=== PATIENT | male | born 1955 | race Caucasian/White ===

== ENCOUNTER 2016-12-07 13:18 | Inpatient (IN) | payer OTHER ==
[2016-12-07 17:31] VITALS: BMI 24.5
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
[2016-12-07] MEDS ORDERED: P-EPHED 60MG/TRIPROLIDI 2.5MG TABLET PO PRN (18:45)
[2016-12-07] MEDS ORDERED: NICOTINE POLACRILEX 2 MG GUM BC PRN (18:45)
[2016-12-07] MEDS ORDERED: LOPERAMIDE HCL 2 MG CAPSULE PO PRN (18:45)
[2016-12-07] MEDS ORDERED: MAGNESIUM HYDROX 2400MG/30ML ORAL SUSPENSION 30 ML CUP PO PRN (18:45)
[2016-12-07] MEDS ORDERED: diphenhydrAMINE HCL 50 MG CAPSULE PO PRN (18:45)
[2016-12-07] MEDS ORDERED: guaiFENesin/D-METHORPHAN HB 10 ML UNIT-DOSE CUPS PO PRN (18:45)
[2016-12-07] MEDS ORDERED: IBUPROFEN 400 MG TABLET (FP) PO PRN (18:45)
[2016-12-07] MEDS ORDERED: MENTHOL/PHENOL 1 EACH UD MM PRN (18:45)
[2016-12-07] MEDS ORDERED: ACETAMINOPHEN 325 MG TABLET (FP) PO PRN (18:45)
[2016-12-07] MEDS ORDERED: MAGNESIUM CITRATE 300 ML BOTTLE PO PRN (18:45)
[2016-12-07] MEDS ORDERED: MAG HYDROX/AL HYDROX/SIMETH 30 ML UNIT-DOSE CUP PO PRN (18:45)
[2016-12-07] MEDS ORDERED: NICOTINE 14 MG/24 HOURS TOPICAL PATCH TD PRN (19:30)
[2016-12-07] MEDS ORDERED: diazePAM 5 MG TABLET PO ONE (19:30)
[2016-12-07] MEDS: THIAMINE HCL 100 MG TABLET (FP) PO SCH (22:03)
[2016-12-07] MEDS: diazePAM 5 MG TABLET PO SCH (22:03)
[2016-12-07 23:24] LABS: URINE APPEARANCE CLEAR; URINE BILIRUBIN NEGATIVE (NEGATIVE); URINE BLOOD NEGATIVE (NEGATIVE); URINE COLOR COLORLESS; URINE GLUCOSE (UA) NEGATIVE (NEGATIVE); URINE KETONE NEGATIVE (NEGATIVE); URINE LEUK ESTERASE NEGATIVE (NEGATIVE); URINE NITRITE NEGATIVE (NEGATIVE); URINE PROTEIN NEGATIVE (NEGATIVE); URINE UROBILINOGEN NEGATIVE E.U./dl (0.2-1.0)
[2016-12-08] MEDS: diazePAM 5 MG TABLET PO SCH ×3 (06:02→22:04)
[2016-12-08] MEDS ORDERED: METHADONE HCL 10 MG TABLET PO SCH (08:45)
[2016-12-08] MEDS ORDERED: METHADONE HCL 10 MG TABLET PO ONE (09:06)
[2016-12-08 10:07] LABS: MCH 32.9 pg (25.7-33.7); MCHC 33.6 g/dl (32.0-35.9); MEAN PLT VOLUME 9.8 fl (7.5-11.1); PLATELET COUNT 63 K/MM3 (134-434); RDW 14.6 % (11.9-15.9); WHITE BLOOD COUNT 3.3 K/mm3 (4.0-10.0)
[2016-12-08] MEDS: PRENATAL VITAMINS W/ FOLIC ACID TABLET (FP) PO SCH (10:15)
--- NOTE | 2016-12-08 11:00 | PN ---
[facility] CIWA - CIWA Score Nausea/Vomitin-No Nausea/No Vomiting Muscle Tremors: 4-Moderate,w/Arms Extend Anxiety: 4-Mod. Anxious/Guarded Agitation: 4-Moderately Restless Paroxysmal Sweats: 1-Minimal Palms Moist Orientation: 0-Oriented Tacttile Disturbances: 3-Moderate Itch/Numb/Burn Auditory Disturbances: 0-None Visual Disturbances: 0-None Headache: 0-None Present CIWA-Ar Total Score: 16 S Progress Note (SOAP) Subjective: TREMORS, ANXIETY,INTERMITTENT SLEEP Objective: 12/08/16 11:00 Vital Signs Temperature 97.4 F L 12/08/16 09:39 Pulse Rate 68 12/08/16 09:39 Respiratory Rate 18 12/08/16 09:39 Blood Pressure 105/66 12/08/16 09:39 O2 Sat by Pulse Oximetry (%) Laboratory Last Values WBC 3.3 K/mm3 (4.0-10.0) L 12/08/16 06:00 RBC 3.22 M/mm3 (4.00-5.60) L 12/08/16 06:00 Hgb 10.6 GM/dL (11.7-16.9) L 12/08/16 06:00 Hct 31.6 % (35.4-49) L 12/08/16 06:00 MCV 98.0 fl (80-96) H 12/08/16 06:00 MCHC 33.6 g/dl (32.0-35.9) 12/08/16 06:00 RDW 14.6 % (11.9-15.9) 12/08/16 06:00 Plt Count 63 K/MM3 (134-434) L 12/08/16 06:00 MPV 9.8 fl (7.5-11.1) 12/08/16 06:00 Sodium 142 mmol/L (136-145) 12/08/16 06:00 Potassium 4.0 mmol/L (3.5-5.1) 12/08/16 06:00 Chloride 105 mmol/L (98-107) 12/08/16 06:00 Urine Color Colorless 12/07/16 Unknown Urine Appearance Clear 12/07/16 Unknown Urine pH 6.0 (5.0-8.0) 12/07/16 Unknown Urine Protein Negative (NEGATIVE) 12/07/16 Unknown Urine Glucose (UA) Negative (NEGATIVE) 12/07/16 Unknown Urine Ketones Negative (NEGATIVE) 12/07/16 Unknown Urine Blood Negative (NEGATIVE) 12/07/16 Unknown Urine Nitrite Negative (NEGATIVE) 12/07/16 Unknown Urine Bilirubin Negative (NEGATIVE) 12/07/16 Unknown Urine Urobilinogen Negative E.U./dl (0.2-1.0) 12/07/16 Unknown Ur Leukocyte Esterase Negative (NEGATIVE) 12/07/16 Unknown Assessment: 12/08/16 11:00 WITHDRAWAL SX Plan: CONTINUE DETOX
[2016-12-08 11:24] LABS: ALBUMIN 3.4 g/dl (3.4-5.0); ALK PHOS 141 U/L (45-117); ANION GAP 10 (8-16); BILIRUBIN,TOTAL 0.8 mg/dL (0.2-1.0); CALCIUM 8.7 mg/dL (8.5-10.1); CO2 27 mmol/L (21-32); COCKROFT - GAULT 94.56; CREATININE 0.8 mg/dL (0.7-1.3); GLUCOSE,RANDOM 90 mg/dL (74-106); HIV 1 & 2 AB NEGATIVE; HIV 1 AGp24 NEGATIVE; SGOT/AST 86 U/L (15-37); SGPT/ALT 43 U/L (12-78); TOT PROT 7.5 g/dl (6.4-8.2)
--- NOTE | 2016-12-08 11:59 | EKG ---
Test Reason : Blood Pressure : / mmHG Vent. Rate : 057 BPM Atrial Rate : 057 BPM P-R Int : 176 ms QRS Dur : 096 ms QT Int : 450 ms P-R-T Axes : 059 048 053 degrees QTc Int : 438 ms SINUS BRADYCARDIA OTHERWISE NORMAL ECG NO PREVIOUS ECGS AVAILABLE Confirmed by TARUN SANFORD, CHELLE ([id number]) on 12/08/2016 11:59:27 AM Referred By: Confirmed By:CHELLE MCNEIL MD
--- NOTE | 2016-12-08 16:42 | CONSULT ---
[facility] Psychiatric Consult - Data Date of interview: 12/08/16 Admission source: [facility] Identifying data: First admission to [facility] for this 61 y/o male seeking detox treatment for alcohol and benzodiazepine dependence.Patient is single,a father of one,domiciled,unemployed and supported on SSI benefits. Substance Abuse History: - Smoking Cessation. Smoking history: Current every day smoker. Have you smoked in the past 12 months: Yes. Aproximately how many cigarettes per day: 10. Cigars Per Day: 0. Hx Chewing Tobacco Use: No. Initiated information on smoking cessation: Yes. 'Breaking Loose' booklet given : 12/07/16. - Substance & Tx. History. Hx Alcohol Use: Yes. Hx Substance Use : Yes. Substance Use Type: Alcohol, Tranquilizers. Hx Substance Use Treatment : Yes. - Substances Abused. Alcohol. Route: Oral. Frequency: Daily. Amount used: BEER- 1 SIX PACK. Age of first use: 12. Date of Last Use: . Heroin. Route: Inhalation. Frequency: Daily. Amount used: 2 BAGS. Age of first use: 12. Date of Last Use: 12/06/16. Diazepam. Route: Oral. Frequency: Daily. Amount used: 20 MG. Age of first use: 15. Date of Last Use : 12/06/16. Confirmed by patient. Medical History: Hepatitis C,lower back pain and a remote history of head trauma. Psychiatric History: Patient is a poor historian.He denies hiastory of psychiatric hospitalizations.Mr Arzola reports OPD care at the [facility].Vague and difficult to follow.Patient does mention zoloft without clear details.Diagnosed with MDD and Anxiety Disorder.History of suicide attempt via " cutting " at age 19.Patient reports chronic insomnia. Physical/Sexual Abuse/Trauma History: Patient denies. Additional Comment: Urine Drug Screen Results: OPI-Opiates, BZO-Benzodiazepines , MTD-Methadone.Noted. Mental Status Exam - Mental Status Exam Alert and Oriented to: Time, Place, Person Cognitive Function: Grossly Intact Patient Appearance: Unkempt, Disheveled Mood: Nervous, Withdrawn, Anxious Affect: Mood Congruent Patient Behavior: Sedated (light sedation.), Fatigued Speech Pattern: Delayed, Slurred, Rambling (at times) Voice Loudness: Moderately Soft/Quiet Thought Process: Disorganized Thought Disorder: Not Present Hallucinations: Denies Suicidal Ideation: Denies Homicidal Ideation: Denies Insight/Judgement: Poor Sleep: Poorly, Difficulty falling asleep Appetite: Fair Muscle strength/Tone: Normal Gait/Station: Normal Psychiatric Findings - Problem List ([place] 1, 2,3) (1) Alcohol dependence with uncomplicated withdrawal Current Visit: Yes Status: Acute (2) Opioid dependence on agonist therapy Current Visit: Yes Status: Acute (3) Benzodiazepine dependence Current Visit: Yes Status: Acute (4) Nicotine dependence Current Visit: Yes Status: Acute Qualifiers: Nicotine product type: cigarettes Substance use status: in withdrawal Qualified Code(s): F17.213 - Nicotine dependence, cigarettes, with withdrawal (5) Depressive disorder Current Visit: Yes Status: Acute (6) Substance induced mood disorder Current Visit: Yes Status: Acute (7) Weight loss Current Visit: Yes Status: Chronic (8) Hepatitis C antibody positive in blood Current Visit: Yes Status: Chronic (9) Metal plate in skull Current Visit: Yes Status: Resolved (10) Positive PPD, treated Current Visit: Yes Status: Resolved (11) Insomnia Current Visit: Yes Status: Acute - Initial Treatment Plan Initial Treatment Plan: Psychoeducation.Detoxification.Medications : zoloft 50 mg po daily.Side effects/benefits discussed with patient.He agrees with paln.Observation.Pharmacy claims are reviewed : noted scripts for valium 10 mg # 60 tablets + zoloft 50 mg # 30 tablets issued on 12/04/16 at [facility].NO scripts needed at discharge.
[2016-12-08] MEDS: THIAMINE HCL 100 MG TABLET (FP) PO SCH (22:04)
[2016-12-09] MEDS: METHADONE HCL 10 MG TABLET PO SCH (06:17)
--- NOTE | 2016-12-09 09:45 | PN ---
[facility] CIWA - CIWA Score Nausea/Vomitin-No Nausea/No Vomiting Muscle Tremors: 4-Moderate,w/Arms Extend Anxiety: 4-Mod. Anxious/Guarded Agitation: 4-Moderately Restless Paroxysmal Sweats: 1-Minimal Palms Moist Orientation: 0-Oriented Tacttile Disturbances: 3-Moderate Itch/Numb/Burn Auditory Disturbances: 0-None Visual Disturbances: 0-None Headache: 0-None Present CIWA-Ar Total Score: 16 S Progress Note (SOAP) Subjective: ANXIETY,SWEATS,FATIGUE. Objective: 12/09/16 09:45 Vital Signs Temperature 96.0 F L 12/09/16 06:40 Pulse Rate 60 12/09/16 06:40 Respiratory Rate 18 12/09/16 06:40 Blood Pressure 119/72 12/09/16 06:40 O2 Sat by Pulse Oximetry (%) Laboratory Last Values WBC 3.3 K/mm3 (4.0-10.0) L 12/08/16 06:00 RBC 3.22 M/mm3 (4.00-5.60) L 12/08/16 06:00 Hgb 10.6 GM/dL (11.7-16.9) L 12/08/16 06:00 Hct 31.6 % (35.4-49) L 12/08/16 06:00 MCV 98.0 fl (80-96) H 12/08/16 06:00 MCHC 33.6 g/dl (32.0-35.9) 12/08/16 06:00 RDW 14.6 % (11.9-15.9) 12/08/16 06:00 Plt Count 63 K/MM3 (134-434) L 12/08/16 06:00 MPV 9.8 fl (7.5-11.1) 12/08/16 06:00 Sodium 142 mmol/L (136-145) 12/08/16 06:00 Potassium 4.0 mmol/L (3.5-5.1) 12/08/16 06:00 Chloride 105 mmol/L (98-107) 12/08/16 06:00 Carbon Dioxide 27 mmol/L (21-32) 12/08/16 06:00 Anion Gap 10 (8-16) 12/08/16 06:00 BUN 8 mg/dL (7-18) 12/08/16 06:00 Creatinine 0.8 mg/dL (0.7-1.3) 12/08/16 06:00 Creat Clearance w eGFR > 60 (>60) 12/08/16 06:00 Random Glucose 90 mg/dL (74-106) 12/08/16 06:00 Calcium 8.7 mg/dL (8.5-10.1) 12/08/16 06:00 Total Bilirubin 0.8 mg/dL (0.2-1.0) 12/08/16 06:00 AST 86 U/L (15-37) H 12/08/16 06:00 ALT 43 U/L (12-78) 12/08/16 06:00 Alkaline Phosphatase 141 U/L (45-117) H 12/08/16 06:00 Total Protein 7.5 g/dl (6.4-8.2) 12/08/16 06:00 Albumin 3.4 g/dl (3.4-5.0) 12/08/16 06:00 Urine Color Colorless 12/07/16 Unknown Urine Appearance Clear 12/07/16 Unknown Urine pH 6.0 (5.0-8.0) 12/07/16 Unknown Ur Specific [place] <= 1.005 (1.005-1.025) 12/07/16 Unknown Urine Protein Negative (NEGATIVE) 12/07/16 Unknown Urine Glucose (UA) Negative (NEGATIVE) 12/07/16 Unknown Urine Ketones Negative (NEGATIVE) 12/07/16 Unknown Urine Blood Negative (NEGATIVE) 12/07/16 Unknown Urine Nitrite Negative (NEGATIVE) 12/07/16 Unknown Urine Bilirubin Negative (NEGATIVE) 12/07/16 Unknown Urine Urobilinogen Negative E.U./dl (0.2-1.0) 12/07/16 Unknown Ur Leukocyte Esterase Negative (NEGATIVE) 12/07/16 Unknown RPR Titer Nonreactive (NONREACTIVE) 12/08/16 06:00 HIV 1&2 Antibody Screen Negative 12/08/16 06:00 HIV P24 Antigen Negative 12/08/16 06:00 Assessment: 12/09/16 09:46 WITHDRAWAL SX Plan: CONTINUE DETOX
[2016-12-09] MEDS: PRENATAL VITAMINS W/ FOLIC ACID TABLET (FP) PO SCH (10:12)
[2016-12-09] MEDS: SERTRALINE HCL 50 MG TABLET (FP) PO SCH (10:12)
[2016-12-09] MEDS: diazePAM 5 MG TABLET PO SCH ×2 (10:12→22:03)
[2016-12-09] MEDS: THIAMINE HCL 100 MG TABLET (FP) PO SCH (22:02)
[2016-12-10] MEDS: METHADONE HCL 10 MG TABLET PO SCH (05:43)
[2016-12-10] MEDS: diazePAM 5 MG TABLET PO PRN ×2 (05:43→17:05)
[2016-12-10] MEDS: diazePAM 5 MG TABLET PO SCH ×2 (10:05→22:10)
[2016-12-10] MEDS: SERTRALINE HCL 50 MG TABLET (FP) PO SCH ×2 (10:05→10:07)
[2016-12-10] MEDS: PRENATAL VITAMINS W/ FOLIC ACID TABLET (FP) PO SCH (10:05)
--- NOTE | 2016-12-10 10:32 | PN ---
[facility] Progress Note (SOAP) Subjective: PT IS VERY ANXIOUS WITH SOME TREMORS, IRRITABILITY,RESTLESSNESS AND APPREHENSION. Objective: 12/10/16 10:32 Vital Signs Temperature 96.4 F L 12/10/16 10:17 Pulse Rate 65 12/10/16 10:17 Respiratory Rate 18 12/10/16 10:17 Blood Pressure 91/59 12/10/16 10:17 O2 Sat by Pulse Oximetry (%) Assessment: 12/10/16 10:32 WITHDRAWAL SX Plan: CONTINUE DETOX REMINDED PT TO FOCUS ON TREATMENT GOALS.
[2016-12-10] MEDS: THIAMINE HCL 100 MG TABLET (FP) PO SCH (22:10)
[2016-12-11] MEDS: METHADONE HCL 10 MG TABLET PO SCH (05:50)
[2016-12-11] MEDS: PRENATAL VITAMINS W/ FOLIC ACID TABLET (FP) PO SCH (09:35)
[2016-12-11] MEDS: SERTRALINE HCL 50 MG TABLET (FP) PO SCH (09:36)
[2016-12-11] MEDS ORDERED: diazePAM 5 MG TABLET PO SCH (10:00)
[2016-12-11 10:28] VITALS: BP 115/74; PULSE 70; TEMP 97.7
--- NOTE | 2016-12-11 10:41 | DS ---
[facility] Detox Discharge Summary Admission Date: 12/07/16 Discharge Date: 12/11/16 - History Present History: Alcohol Dependence, MMTP Pertinent Past History: PPD+ Hep C Cirrhosis of the liver - Physical Exam Results Vital Signs: Vital Signs Temperature 97.7 F 12/11/16 10:27 Pulse Rate 70 12/11/16 10:27 Respiratory Rate 18 12/11/16 10:27 Blood Pressure 115/74 12/11/16 10:27 O2 Sat by Pulse Oximetry (%) Pertinent Admission Physical Exam Findings: Withdrawal sx. Laboratory Last Values WBC 3.3 K/mm3 (4.0-10.0) L 12/08/16 06:00 RBC 3.22 M/mm3 (4.00-5.60) L 12/08/16 06:00 Hgb 10.6 GM/dL (11.7-16.9) L 12/08/16 06:00 Hct 31.6 % (35.4-49) L 12/08/16 06:00 MCV 98.0 fl (80-96) H 12/08/16 06:00 MCHC 33.6 g/dl (32.0-35.9) 12/08/16 06:00 RDW 14.6 % (11.9-15.9) 12/08/16 06:00 Plt Count 63 K/MM3 (134-434) L 12/08/16 06:00 MPV 9.8 fl (7.5-11.1) 12/08/16 06:00 Sodium 142 mmol/L (136-145) 12/08/16 06:00 Potassium 4.0 mmol/L (3.5-5.1) 12/08/16 06:00 Chloride 105 mmol/L (98-107) 12/08/16 06:00 Carbon Dioxide 27 mmol/L (21-32) 12/08/16 06:00 Anion Gap 10 (8-16) 12/08/16 06:00 BUN 8 mg/dL (7-18) 12/08/16 06:00 Creatinine 0.8 mg/dL (0.7-1.3) 12/08/16 06:00 Creat Clearance w eGFR > 60 (>60) 12/08/16 06:00 Random Glucose 90 mg/dL (74-106) 12/08/16 06:00 Calcium 8.7 mg/dL (8.5-10.1) 12/08/16 06:00 Total Bilirubin 0.8 mg/dL (0.2-1.0) 12/08/16 06:00 AST 86 U/L (15-37) H 12/08/16 06:00 ALT 43 U/L (12-78) 12/08/16 06:00 Alkaline Phosphatase 141 U/L (45-117) H 12/08/16 06:00 Total Protein 7.5 g/dl (6.4-8.2) 12/08/16 06:00 Albumin 3.4 g/dl (3.4-5.0) 12/08/16 06:00 Urine Color Colorless 12/07/16 Unknown Urine Appearance Clear 12/07/16 Unknown Urine pH 6.0 (5.0-8.0) 12/07/16 Unknown Ur Specific [place] <= 1.005 (1.005-1.025) 12/07/16 Unknown Urine Protein Negative (NEGATIVE) 12/07/16 Unknown Urine Glucose (UA) Negative (NEGATIVE) 12/07/16 Unknown Urine Ketones Negative (NEGATIVE) 12/07/16 Unknown Urine Blood Negative (NEGATIVE) 12/07/16 Unknown Urine Nitrite Negative (NEGATIVE) 12/07/16 Unknown Urine Bilirubin Negative (NEGATIVE) 12/07/16 Unknown Urine Urobilinogen Negative E.U./dl (0.2-1.0) 12/07/16 Unknown Ur Leukocyte Esterase Negative (NEGATIVE) 12/07/16 Unknown RPR Titer Nonreactive (NONREACTIVE) 12/08/16 06:00 HIV 1&2 Antibody Screen Negative 12/08/16 06:00 HIV P24 Antigen Negative 12/08/16 06:00 labs noted - Treatment Hospital Course: Detox Protocol Followed, Detoxed Safely, Responded well, Discharged Condition Good, Rehab Referral Accepted Patient has Accepted a Rehab Referral to: ![facility] steps meetings - Medication Discharge Medications: Ambulatory Orders Diazepam [Valium] 10 mg PO DAILY 12/07/16 Sertraline HCl [Zoloft -] 50 mg PO DAILY 12/07/16 - Diagnosis (1) Alcohol dependence with uncomplicated withdrawal Current Visit: Yes Status: Acute (2) Insomnia Current Visit: Yes Status: Acute (3) Opioid dependence on agonist therapy Current Visit: Yes Status: Acute (4) Substance induced mood disorder Current Visit: Yes Status: Acute (5) Hepatitis C antibody positive in blood Current Visit: Yes Status: Chronic (6) Positive PPD, treated Current Visit: Yes Status: Resolved - AMA Did Patient Leave Against Medical Advice: No
== END 2016-12-11 09:41 | disposition home or self-care (01) | DRG 773 ==
LOC: YASAS 13:18 → Y3N 18:52
PROVIDERS: ADMIT Internal Medicine; ATTEND Internal Medicine
PROC: HZ2ZZZZ Detoxification Services for Substance Abuse Treatment (ICD-10-PCS; principal; 2016-12-07)
DX: F10.230 Alcohol dependence with withdrawal, uncomplicated (principal); F11.20 Opioid dependence, uncomplicated; F13.20 Sedative, hypnotic or anxiolytic dependence, uncomplicated; F17.213 Nicotine dependence, cigarettes, with withdrawal; F19.24 Other psychoactive substance dependence with psychoactive substance-induced mood disorder; F34.1 Dysthymic disorder; G47.00 Insomnia, unspecified; B18.2 Chronic viral hepatitis C; R76.11 Nonspecific reaction to tuberculin skin test without active tuberculosis; K74.60 Unspecified cirrhosis of liver; R00.1 Bradycardia, unspecified; Z87.898 Personal history of other specified conditions
CPT/HCPCS: 36415; 71020-TC; 80053; 81003; 85027; 86593; 87389; 93005; 93010